=== PATIENT | female | born 1950 | race Caucasian/White ===

== ENCOUNTER 2024-07-26 14:21 | Emergency (ER) | payer BC, SELFPAY ==
[2024-07-26 14:25] VITALS: BP 146/92
[2024-07-26] MEDS: OMNIPAQUE 50 ML PO (14:33)
[2024-07-26 14:47] LABS: % Basophils 0.5 % (0-2); % Eosinophils 2.3 % (0-6); % Immature Granulocytes 0.5 % (0-0.5); % Monocytes 8.5 % (1.7-9.3); % Neutrophils 76.2 % (42.2-75.2); Absolute Basophils 0.1 10^3/uL (0-0.2); Absolute Eosinophils 0.3 10^3/uL (0-0.7); Absolute Immature Granulocytes 0.1 10^3/uL (0-0.05); Absolute Lymphocytes 1.3 10^3/uL (1.2-3.4); Absolute Monocytes 0.9 10^3/uL (0.1-0.6); Absolute Neutrophils 8.3 10^3/uL (1.4-6.5); Hematocrit 41.2 % (37.0-47.0); Hemoglobin 14.3 g/dL (12.0-16.0); Mean Corp Hgb Conc. 34.7 g/dL (33.0-37.0); Mean Corpuscular Hgb 32.1 pg (27.0-31.0); Mean Corpuscular Volume 92.4 fL (81.0-99.0); Mean Platelet Volume 10.4 fL (7.4-10.4); Nucleated Red Blood Cells % 0 %; Platelet Count 187 10^3/uL (130-400); Red Blood Cell Count 4.46 10^6/uL (4.20-5.40); Red Cell Dist. Width 12.8 % (11.5-14.5); White Blood Cell Count 10.9 10^3/uL (4.8-10.8)
[2024-07-26 15:03] LABS: ALT (SGPT) 43 U/L (0-35); AST (SGOT) 34 U/L (14-36); Albumin 4.6 g/dl (3.5-5.0); Alkaline Phosphatase 88 U/L (38-126); Blood Urea Nitrogen 32 mg/dl (7-17); Calcium 9.4 mg/dl (8.4-10.2); Carbon Dioxide 23 mmol/L (22-30); Chloride 112 mmol/L (98-107); Glucose 125 mg/dl (70-99); Potassium 4.4 mmol/L (3.5-5.1); Sodium 140 mmol/L (135-145); Total Bilirubin 0.6 mg/dl (0.2-1.3); Total Protein 7.4 g/dl (6.3-8.2); eGFR > 60.00
[2024-07-26 16:35] LABS: Lipase 171 U/L (23-300)
[2024-07-26 16:49] VITALS: BMI 32.6
[2024-07-26] MEDS: NSS 500 IV (16:56)
--- NOTE | 2024-07-26 17:13 | ED.GENMED ---
History of Present Illness
General
Chief Complaint: Abdominal Pain
Source: patient and family (Daughter)
Time Seen by Provider: 07/26/24 15:48
History of Present Illness
History of Present Illness:
Patient started weeks ago with vague abdominal discomfort. Her primary physician who felt it was related to her back. No ongoing symptoms. Some nausea. Bowel movements are normal. No urinary symptoms. No fever. Feels bloated and distended
however
Past History
Past History
ED Past Medical History: Other (diverticulitis)
ED Past Surgical History: Orthopedic (bunionectomy)
Social History
Tobacco: Non-smoker
Alcohol: None
Living: with family
Review of Systems
Review of Systems
All Other Systems: Not applicable
Constitutional: Denies fever
Respiratory: Reports no symptoms
Cardiac: Reports no symptoms
Phy Exam
Physical Exam
Physical Exam:
GENERAL: Alert and oriented in no apparent distress
EYE: Orbits normal.
NECK: Supple
CARDIAC: Regular rate and rhythm without any obvious murmurs.
LUNGS: Clear breath sounds,normal
ABDOMEN: Soft, elevated BMI. Soft. Bowel sounds present. No rebound or guarding no mass or hernia. Mild nonlocalizing mid abdominal tenderness.
NEUROLOGICAL: Alert and oriented , grossly non-focal
SKIN: Warm and dry, no rash or lesion, no discoloration, skin intact.
MUSCULOSKELETAL: No edema,no deformity.Good color
PSYCH: Normal and appropriate interaction.
Course
Orders/Labs/Results
Orders:
Orders
07/26/24 14:33
Iohexol [Omnipaque] See Protocol PO NOW STA
07/26/24 14:38
CMP [Comprehensive Metabolic Panel] Urgent
Complete Blood Count/With Diff Urgent
Lipase Urgent
Comment: ADD ON
07/26/24 16:01
Add On- LAB Urgent
Tests Added?: lipase
07/26/24 16:06
IV Insert/Care/Rem.- Treatment PRN
0.9% Sodium Chloride 500 ml [Nss] 500 ml IV BOLUS
07/26/24 17:11
CT Abd/pel (oral only)-DH Only Urgent
Comment:
Reason For Exam: Vague mid abdominal pain
Iohexol [Omnipaque] See Protocol PO NOW STA
07/26/24 17:48
Urinalysis Reflex To Culture Urgent
Date Specimen was Collected: 07/26/24
Time Specimen was Collected: 16:47
Urine Microscopic Reflex Cult Urgent
Urine Culture Urgent
JANUARY Source: U
Specimen Description:
Date Specimen was Collected: 07/26/24
Time Specimen was Collected: 16:47
Abnormal Lab Results
07/26/24 07/26/24
14:38 17:48
WBC 10.9 H 10^3/uL
(4.8-10.8)
MCH 32.1 H pg
(27.0-31.0)
Abs Immat Gran (auto) 0.1 H 10^3/uL
(0-0.05)
Absolute Neuts (auto) 8.3 H 10^3/uL
(1.4-6.5)
Absolute Monos (auto) 0.9 H 10^3/uL
(0.1-0.6)
Neutrophils % 76.2 H %
(42.2-75.2)
Lymphocytes % 12.0 L %
(20.5-51.1)
Chloride 112 H mmol/L
(98-107)
BUN 32 H mg/dl
(7-17)
Glucose 125 H mg/dl
(70-99)
ALT 43 H U/L
(0-35)
Leukocyte Esterase Rfl 1+ A
(Negative)
Urine WBC (Reflex) 11-15 A /HPF
(0-5)
Urine Bacteria (Reflex) Few A
(Negative)
07/26/24 14:38
07/26/24 14:38
Vital Signs
Initial and Last Documented VS:
Initial Vital Signs
Temp Pulse Resp BP Pulse Ox
98.2 F 94 20 146/92 95
07/26/24 14:25 07/26/24 14:25 07/26/24 14:25 07/26/24 14:25 07/26/24 14:25
Last Documented Vital Signs
Temp Pulse Resp BP Pulse Ox
98.3 F 77 16 147/90 96
07/26/24 17:57 07/26/24 17:57 07/26/24 17:57 07/26/24 17:57 07/26/24 17:57
MDM/Problems Addressed
Differential Diagnosis Includes:
Vague mid abdominal symptoms. Clearly not classic for diverticulitis. Clinically doubt surgical abdomen. Workup in progress.
*Radiology
Radiology exam reviewed: radiology read reviewed (No acute abnormalities. Adrenal nodule pulmonary nodule)
*Pulse Oximetry
Patient hypoxic: no
*Critical Care Note
Total Time (30-74mins, 75-104mins- exclusive of procedures): Not Applicable
Data Reviewed
Review of Other/Old Records Reveals: Labs, Records and Radiology Studies
Update Note
Update Note:
Patient is dressed sitting up in no distress. No acute findings. Copy of CT report given to patient and daughter to follow-up the adrenal nodule and pulmonary nodule. Urinalysis iffy although not really describing UTI symptoms. Will await urine
culture. This was discussed with patient and daughter
ED Attending Note
-
Portions of this chart may have been created with voice recognition software.� Occasional wrong word or��sound alike� substitutions may have occurred due to the inherent limitations of voice recognition software.
Discharge Plan
Departure
Patient Disposition: Home (Routine Discharge)
Date of Disposition: 07/26/24
Time of Disposition: 18:33
Patient with high blood pressure during this ER visit?: Yes
Discharge Problem:
Abdominal pain unknown etiology, Incidental adrenal/pulmonary nodule
Instructions: Abdominal Pain, BLOOD PRESSURE
Prescriptions:
No Action
prednisolone acetate 1 DROP drops,suspension
1 drp LEFT EYE BID
ibuprofen [Advil] 200 MG tablet
200 mg PO Q4HPRN PRN (Reason: pain)
amoxicillin-pot clavulanate 1 TABLET tablet
1 tab PO Q12 Qty: 19 0RF
Referrals:
Luke Benton MD [Active] - Next open appointment
Kerline Montalvo MD [Family Provider] - Follow up in 2-3 days
Activity Restrictions/Additional Instructions:
Follow-up with your primary physician.
The urine culture should be back in 2 days
Follow-up the CT report with your primary physician
To consider following up with gastroenterology with ongoing symptoms
Interventions
Interventions:
*Risk Screen - Suicide Last Done: 07/26/24 14:25
*General Assessment Last Done: 07/26/24 14:25
*ED- Fall Risk Assessment Last Done: 07/26/24 16:49
*ED COVID-19 Vaccine History Last Done: 07/26/24 16:49
*Nursing Disposition Last Done: 07/26/24 18:44
TG-Giazwe-Abyufbkvyl Assessment Last Done: 07/26/24 16:49
Discharge Date and Time
Discharge Date/Time: 07/26/24 18:44
Print Language: BULGARIAN
[2024-07-26 17:57] VITALS: BP 147/90
[2024-07-26 18:00] LABS: Urine Albumin Negative (Neg - Trace); Urine Bilirubin Negative (Negative); Urine Character Clear (Clear); Urine Color Yellow; Urine Glucose Negative (Negative); Urine Ketone Negative (Negative); Urine Leukocyte 1+ (Negative); Urine Nitrite Negative (Negative); Urine Occult Blood Negative (Negative); Urine Specific Gravity 1.005 (<1.030); Urine Urobilinogen Negative (Neg - 1+)
[2024-07-26 18:19] LABS: Urine Bacteria Few (Negative); Urine Red Blood Cell 0-2 /HPF (0-2)
== END 2024-07-26 18:44 | disposition home or self-care (01) ==
LOC: EMR 14:21
PROVIDERS: Emergency Medicine; EMERGENCY PHYSICIAN Emergency Medicine; FAMILY PHYSICIAN Family Medicine
DX: R10.9 Unspecified abdominal pain (principal)
CPT/HCPCS: 99284; 74176; 80053; 81003; 81015; 83690; 85025; 87086

== ENCOUNTER 2024-08-19 09:58 | Emergency (ER) | payer BC, SELFPAY ==
[2024-08-19 10:00] VITALS: BP 147/93
[2024-08-19 10:22] LABS: % Basophils 0.6 % (0-2); % Eosinophils 2.8 % (0-6); % Immature Granulocytes 0.3 % (0-0.5); % Lymphocytes 16.3 % (20.5-51.1); % Monocytes 7.7 % (1.7-9.3); % Neutrophils 72.3 % (42.2-75.2); Absolute Basophils 0.1 10^3/uL (0-0.2); Absolute Eosinophils 0.3 10^3/uL (0-0.7); Absolute Lymphocytes 1.6 10^3/uL (1.2-3.4); Absolute Monocytes 0.7 10^3/uL (0.1-0.6); Hematocrit 42.1 % (37.0-47.0); Hemoglobin 14.4 g/dL (12.0-16.0); Mean Corp Hgb Conc. 34.2 g/dL (33.0-37.0); Mean Corpuscular Hgb 31.6 pg (27.0-31.0); Mean Corpuscular Volume 92.5 fL (81.0-99.0); Mean Platelet Volume 9.6 fL (7.4-10.4); Nucleated Red Blood Cells % 0 %; Platelet Count 184 10^3/uL (130-400); Red Blood Cell Count 4.55 10^6/uL (4.20-5.40); Red Cell Dist. Width 12.8 % (11.5-14.5); White Blood Cell Count 9.7 10^3/uL (4.8-10.8)
[2024-08-19 10:36] LABS: AST (SGOT) 32 U/L (14-36); Albumin 4.4 g/dl (3.5-5.0); Alkaline Phosphatase 83 U/L (38-126); Blood Urea Nitrogen 24 mg/dl (7-17); Calcium 10.1 mg/dl (8.4-10.2); Carbon Dioxide 25 mmol/L (22-30); Chloride 109 mmol/L (98-107); Glucose 124 mg/dl (70-99); Lipase 177 U/L (23-300); Potassium 4.3 mmol/L (3.5-5.1); Sodium 142 mmol/L (135-145); Total Bilirubin 0.8 mg/dl (0.2-1.3); Total Protein 7.5 g/dl (6.3-8.2); eGFR > 60.00
[2024-08-19 10:47] LABS: Troponin I < 0.012 ng/ml
[2024-08-19 10:54] LABS: ALT (SGPT) 33 U/L (0-35)
--- NOTE | 2024-08-19 11:28 | ED.GENMED ---
History of Present Illness
General
Chief Complaint: Abdominal Pain
Time Seen by Provider: 08/19/24 11:10
History of Present Illness
History of Present Illness:
3-year-old female presents to the emergency department for evaluation of intermittent sharp pain to the periumbilical and epigastric abdomen that has been ongoing for over the past month. She was seen here approximately 3 weeks ago with an
unremarkable workup with negative CT. Has continued to have symptoms. Notes pain that worsens immediately after eating, typically worse with any bread type meals. No history of abdominal surgeries. Distant history numerous times. Does not have
a GI doctor for follow-up. Has lost approximately 10 pounds due to lack of intake
Past History
Past History
ED Past Medical History: Other (diverticulitis)
ED Past Surgical History: Orthopedic (bunionectomy)
Social History
Tobacco: Non-smoker
Alcohol: None
Living: with family
Review of Systems
Review of Systems
Allergies reviewed?: Yes
All Other Systems: ROS reviewed and negative except as documented in HPI and ROS
Phy Exam
Physical Exam
Physical Exam:
GEN: Well appearing, NAD, WDWN
HEENT: Oral mucosa moist, no scleral icterus
Cardiac: Regular rate
Lung: No respiratory distress, no tachypnea
Abdomen: Soft, mildly tender in the epigastrium, no rigidity
MSK: No gross deformity or injuries
Skin: Good color, no pallor or jaundice, no rashes
Neuro: AO x3, moves all extremities freely
Psych: Calm, cooperative
Course
Orders/Labs/Results
Orders:
Orders
08/19/24 10:04
Electrocardiogram (*1) Urgent
Reason for Study: Abdominal Pain
EKG- Treatment ONCE
08/19/24 10:09
Complete Blood Count/With Diff Urgent
Comprehensive Metabolic Panel Urgent
Lipase Urgent
Troponin I Urgent
08/19/24 11:26
Famotidine [Pepcid] 20 mg IV NOW STA
Sucralfate Suspension [Carafate Suspension] 1 gm PO NOW STA
08/19/24 12:16
US Abdomen Complete/Upper Urgent
Comment:
Reason For Exam: epigastric/RUQ pain
Abnormal Lab Results
08/19/24
10:09
MCH 31.6 H pg
(27.0-31.0)
Absolute Neuts (auto) 7.0 H 10^3/uL
(1.4-6.5)
Absolute Monos (auto) 0.7 H 10^3/uL
(0.1-0.6)
Lymphocytes % 16.3 L %
(20.5-51.1)
Chloride 109 H mmol/L
(98-107)
BUN 24 H mg/dl
(7-17)
Glucose 124 H mg/dl
(70-99)
08/19/24 10:09
08/19/24 10:09
Vital Signs
Initial and Last Documented VS:
Initial Vital Signs
Temp Pulse Resp BP Pulse Ox
97.9 F 84 16 147/93 97
08/19/24 10:00 08/19/24 10:00 08/19/24 10:00 08/19/24 10:00 08/19/24 10:00
Last Documented Vital Signs
Temp Pulse Resp BP Pulse Ox
97.9 F 81 16 132/85 98
08/19/24 10:00 08/19/24 14:12 08/19/24 14:12 08/19/24 14:12 08/19/24 14:12
MDM/Problems Addressed
MDM/Problems Addressed:
Suspect peptic ulcer disease, certainly H. pylori is in the differential given her history. She improved with treatment measures in the ED thus will discharge on Carafate plus H2 kelsea, patient already on a PPI, with close outpatient follow-up
with gastroenterology recommended
*Critical Care Note
Total Time (30-74mins, 75-104mins- exclusive of procedures): Not Applicable
ED Attending Note
-
Portions of this chart may have been created with voice recognition software.� Occasional wrong word or��sound alike� substitutions may have occurred due to the inherent limitations of voice recognition software.
Discharge Plan
Departure
Patient Disposition: Home (Routine Discharge)
Date of Disposition: 08/19/24
Time of Disposition: 13:40
Patient with high blood pressure during this ER visit?: Yes
Discharge Problem:
Gastritis
Instructions: Peptic ulcer - ED discharge instructions
Prescriptions:
New
famotidine 20 mg tablet
20 mg PO BID 14 Days Qty: 28 0RF
sucralfate [Carafate] 1 gram tablet
1 g PO AC Qty: 90 0RF
No Action
prednisolone acetate 1 DROP drops,suspension
1 drp LEFT EYE BID
ibuprofen [Advil] 200 MG tablet
200 mg PO Q4HPRN PRN (Reason: pain)
Referrals:
Kerline Montalvo MD [Family Provider, Family Practice]
Rachel Hoang MD [Active, Gastroenterology]
Activity Restrictions/Additional Instructions:
Do not take any [id number] NSAIDs such as ibuprofen, Aleve, or aspirin
Do not take any of your medications within 2 hours of sucralfate as this will prevent you from going to
Follow-up with gastroenterology as we discussed
Interventions
Interventions:
*Risk Screen - Suicide Last Done: 08/19/24 10:00
*General Assessment Last Done: 08/19/24 10:00
*Neglect/Abuse Screening Last Done: 08/19/24 12:00
*ED COVID-19 Vaccine History Last Done: 08/19/24 12:00
*Nursing Disposition Last Done: 08/19/24 14:12
FM-Arsjjb-Rgzfdoecxz Assessment Last Done: 08/19/24 12:00
Discharge Date and Time
Discharge Date/Time: 08/19/24 14:14
Print Language: BERMUDIAN
[2024-08-19] MEDS: CARAFATE SUSPENSION 1 GM PO (11:53)
[2024-08-19] MEDS: PEPCID 20 MG IV (11:53)
[2024-08-19 12:00] VITALS: BP 132/74
[2024-08-19 14:12] VITALS: BP 132/85
== END 2024-08-19 14:14 | disposition home or self-care (01) ==
LOC: EMR 09:58
PROVIDERS: EMERGENCY PHYSICIAN Emergency Medicine; FAMILY PHYSICIAN Family Medicine
DX: K29.70 Gastritis, unspecified, without bleeding (principal)
CPT/HCPCS: 99284; 96374; 76700; 80053; 83690; 84484; 85025; 93005